=== PATIENT | male | born 2000 | race Hispanic/Latino ===

== ENCOUNTER 2023-08-28 16:08 | Emergency (ER) | payer OTHER ==
[~2023-08-28] VITALS: Ht 172.7 cm; Wt 95.3 kg
[2023-08-28] MEDS ORDERED: IOHEXOL 350 MG/ML 100ML INFUS..BTL IV ONE (16:24)
[2023-08-28] MEDS ORDERED: MORPHINE 2 MG SYG IVP ONE (16:30)
[2023-08-28 16:41] LABS: HEMATOCRIT 48.6 % (42-54); MEAN CORPUSCULAR HEMOGLOBIN 28.4 pg (27.0-33.0); MEAN CORPUSCULAR HGB CONC 32.1 g/dL (32.0-36.0); MEAN CORPUSCULAR VOLUME 88.5 fL (79-99); RED BLOOD CELL COUNT(AUTO) 5.49 MIL/uL (4.50-6.20); RED CELL DISTRIBUTION WIDTH 12.7 % (11.0-15.5)
[2023-08-28 16:53] LABS: CREATININE 1.1 mg/dL (0.5-1.5); POTASSIUM 4.1 mmol/L (3.5-5.1)
[2023-08-28] MEDS ORDERED: IBUPROFEN 800 MG TAB PO ONE (17:30)
== END 2023-08-28 18:06 | disposition home or self-care (01) ==
LOC: EDH 16:08
DX: M79.621 Pain in right upper arm (principal); Z90.49 Acquired absence of other specified parts of digestive tract; V89.2XXA Person injured in unspecified motor-vehicle accident, traffic, initial encounter; Y93.89 Activity, other specified; Y92.89 Other specified places as the place of occurrence of the external cause; Y99.8 Other external cause status
CPT/HCPCS: 99285; 70450; 71045; 82550; 80048; 85027; 36415; 72170; 72125; 71260; 74177; Q9967